=== PATIENT | female | born 1950 | race Caucasian/White ===

== ENCOUNTER 2016-04-08 23:29 | Emergency (ER) | payer OTHER ==
[2016-04-08 23:57] VITALS: BP 136/70; PULSE 92; TEMP 97.8; BMI 25.6
--- NOTE | 2016-04-09 00:15 | PDOC ---
History of Present Illness - General History Source: Patient Exam Limitations: No Limitations - History of Present Illness Initial Comments: 04/09/16 01:16 The patient is a 65-year-old female, with a significant past medical history of hyperlipidemia, hypertension, H.pylori, and anemia, who presents to the emergency department complaining of episodes of nausea, vomiting, diarrhea, and dizziness for the past 2 days. As per daughter, she brings the patient to the ED today due to an episode of dizziness and vertigo while in the bathroom. The patient states she felt as if she were going to syncopize.The patient reports 3 episodes of nonbloody and nonbilious emesis, 1 yesterday and 2 today. She reports 5 episodes of diarrhea. She denies constipation. The patient reports associated abdominal pain, which is alleviated after vomiting. The patient denies any changes in appetite. The patient denies any recent travel. The patient denies any sick contacts. The patient denies fever, chills, cough, or headache. The patient denies chest pain, diaphoresis, palpitations, and shortness of breath. The patient denies dysuria, frequency, urgency, and hematuria. Allergies: None reported. Past Surgical History: Cholecystectomy Social History: Non-smoker. Denies alcohol or drug use. <Jonas Lewis - Last Filed: 04/09/16 01:16> - General History Source: Patient <Brooke Childsan - Last Filed: 04/09/16 02:00> - General Chief Complaint: Vomiting/Diarrhea Stated Complaint: VOMITTING,DIZZINESS,FEVER Time Seen by Provider: 04/09/16 00:15 Past History <Jonas Lewis - Last Filed: 04/09/16 01:16> - Past Medical History Anemia: Yes Hypercholesterolemia: Yes - Surgical History Cholecystectomy: Yes - Psycho/Social/Smoking Cessation Hx Suicidal Ideation: No Smoking History: Never smoked Have you smoked in the past 12 months: No Information on smoking cessation initiated: No Hx Alcohol Use: No Drug/Substance Use Hx: No Substance Use Type: None <MikekatherinAkhil - Last Filed: 04/09/16 02:00> - Past Medical History Allergies/Adverse Reactions: Allergies Allergy/AdvReac Type Severity Reaction Status Date / Time No Known Drug Allergies Allergy Verified 04/08/16 23:56 Home Medications: Ambulatory Orders Atorvastatin Ca [Lipitor] 40 mg PO DAILY 06/24/14 Mometasone/Formoterol [Dulera 100 Mcg/5 Mcg Inhaler] 2 inh IH BID PRN 06/24/14 Sumatriptan Succinate [Imitrex -] 25 mg PO PRN PRN 06/24/14 Meclizine HCl [Antivert -] 25 mg PO TID PRN #21 tablet 01/11/15 Review of Systems - Review of Systems Able to Perform ROS?: Yes Comments:: 04/09/16 00:56 CONSTITUTIONAL: Present:+body aches Absent: fever, chills, diaphoresis, generalized weakness, malaise, loss of appetite HEENT: Absent: rhinorrhea, nasal congestion, throat pain, throat swelling, difficulty swallowing, mouth swelling, ear pain, eye pain, visual Changes CARDIOVASCULAR: Absent: chest pain, syncope, palpitations, irregular heart rate, lightheadedness , peripheral edema RESPIRATORY: Present: +cough Absent: shortness of breath, dyspnea with exertion, orthopnea, wheezing, stridor , hemoptysis GASTROINTESTINAL: Present: +abdominal pain, + nausea, +vomiting Absent: abdominal distension, diarrhea, constipation, melena, hematochezia GENITOURINARY: Absent: dysuria, frequency, urgency, hesitancy, hematuria, flank pain, genital pain MUSCULOSKELETAL: Absent: myalgia, arthralgia, joint swelling SKIN: Absent: rash, itching, pallor HEMATOLOGIC/IMMUNOLOGIC: Absent: easy bleeding, easy bruising, lymphadenopathy, frequent infections ENDOCRINE: Absent: unexplained weight gain, unexplained weight loss, heat intolerance, cold intolerance NEUROLOGIC: Present: +dizziness Absent: headache, focal weakness or paresthesias, unsteady gait, seizure, mental status changes, bladder or bowel incontinence PSYCHIATRIC: Absent: anxiety, depression, suicidal or homicidal ideation, hallucinations. <Jonas Lewis - Last Filed: 04/09/16 01:16> *Physical Exam - Vital Signs Last Vital Signs Temp Pulse Resp BP Pulse Ox 97.8 F 92 H 18 136/70 97 04/08/16 23:56 04/08/16 23:56 04/08/16 23:56 04/08/16 23:56 04/08/16 23:56 - Physical Exam Comments: 04/09/16 00:52 GENERAL: Well developed, well nourished. Awake and alert. No acute distress. HEENT: Normocephalic, atraumatic. PERRLA, EOMI. No conjunctival pallor. Sclera are non- icteric. Moist mucous membranes. Oropharynx is clear. NECK: Supple. Full ROM. No JVD. Carotid pulses 2+ and symmetric, without bruits. No thyromegaly. No lymphadenopathy. CARDIOVASCULAR: Regular rate and rhythm. No murmurs, rubs, or gallops. Distal pulses are 2+ and symmetric. PULMONARY: No evidence of respiratory distress. Lungs clear to auscultation bilaterally. No wheezing, rales or rhonchi. ABDOMINAL: +Hyperactive bowel sounds. Soft. Non-tender. Non-distended. No rebound or guarding. No organomegaly. MUSCULOSKELETAL Normal range of motion at all joints. No bony deformities or tenderness. No CVA tenderness. EXTREMITIES: No cyanosis. No clubbing. No edema. No calf tenderness. SKIN: Warm and dry. Normal capillary refill. No rashes. No jaundice. NEUROLOGICAL: Alert, awake, appropriate. Cranial nerves 2-12 intact. No deficits to light touch and temperature in face, upper extremities and lower extremities. No motor deficits in the in face, upper extremities and lower extremities. Normoreflexic in the upper and lower extremities. Normal speech. Toes are down- going bilaterally. Gait is normal without ataxia. PSYCHIATRIC: Cooperative. Good eye contact. Appropriate mood and affect. <Jonas Lewis - Last Filed: 04/09/16 01:16> - Vital Signs Last Vital Signs Temp Pulse Resp BP Pulse Ox 97.8 F 92 H 18 136/70 97 04/08/16 23:56 04/08/16 23:56 04/08/16 23:56 04/08/16 23:56 04/08/16 23:56 <Akhil Childs - Last Filed: 04/09/16 02:00> ED Treatment Course - LABORATORY CBC & Chemistry Diagram: 04/09/16 00:50 04/09/16 00:50 <Jonas Lewis - Last Filed: 04/09/16 01:16> - LABORATORY CBC & Chemistry Diagram: 04/09/16 00:50 04/09/16 00:50 <Akhil Childs - Last Filed: 04/09/16 02:00> Medical Decision Making - Medical Decision Making 04/09/16 02:00 Dr. Childs: The scribe's documentation has been prepared under my direction and personally reviewed by me in its entirery. I confirm that the note above accurately reflects all work, treatment, procedures, and medical decision making performed by me. <Akhil Childs - Last Filed: 04/09/16 02:00> *DC/Admit/Observation/Transfer - Attestations Scribe Attestion: 04/09/16 00:52 Documentation prepared by Jonas Lewis, acting as certified medical asst for Akhil Childs DO. <Jonas Lewis - Last Filed: 04/09/16 01:16> - Discharge Dispostion Admit: No <Akhil Childs - Last Filed: 04/09/16 02:00> Diagnosis at time of Disposition: Vomiting and diarrhea - Discharge Dispostion Disposition: HOME Condition at time of disposition: Stable - Referrals Referrals: Wes Bhardwaj [Primary Care Provider] - - Patient Instructions Printed Discharge Instructions: DI for Vomiting -- Adult
[2016-04-09] MEDS ORDERED: SODIUM CHLORIDE 1,000 ML IV STA ×2 (00:47→00:48)
[2016-04-09 01:01] LABS: BASOPHIL 0.2 % (0-2.0); EOSINOPHIL 1.6 % (0-4.5); MCH 25.9 pg (25.7-33.7); MCHC 31.9 g/dl (32.0-36.0); MEAN CELL VOLUME 81.2 fl (80-96); MEAN PLT VOLUME 8.6 fl (7.5-11.1); NEUTROPHILS 81.9 % (42.8-82.8); PLATELET COUNT 307 K/MM3 (134-434); RDW 14.8 % (11.6-15.6); WHITE BLOOD COUNT 10.3 K/mm3 (4.0-10.0)
[2016-04-09 01:14] LABS: INR 1.03 (0.82-1.09); PROTHROMBIN TIME (PATIENT) 11.3 SEC (9.98-11.88); URINE APPEARANCE SLCLOUDY; URINE BILIRUBIN NEGATIVE (NEGATIVE); URINE BLOOD NEGATIVE (NEGATIVE); URINE COLOR YELLOW; URINE GLUCOSE (UA) NEGATIVE (NEGATIVE); URINE KETONE NEGATIVE (NEGATIVE); URINE LEUK ESTERASE NEGATIVE (NEGATIVE); URINE NITRITE NEGATIVE (NEGATIVE); URINE PROTEIN 2+ (NEGATIVE); URINE UROBILINOGEN NEGATIVE E.U./dl (0.2-1.0)
[2016-04-09 01:25] LABS: ALBUMIN 3.6 g/dl (3.4-5.0); AMYLASE 82 U/L (25-115); ANION GAP 6 (8-16); BILIRUBIN,TOTAL 0.9 mg/dL (0.2-1.0); CALCIUM 8.8 mg/dL (8.5-10.1); CO2 31 mmol/L (21-32); CREATININE 0.6 mg/dL (0.55-1.02); GLUCOSE,RANDOM 130 mg/dL (74-106); MAGNESIUM 2.5 mg/dL (1.8-2.4); SGOT/AST 25 U/L (15-37); SGPT/ALT 36 U/L (12-78); TOT PROT 7.7 g/dl (6.4-8.2)
[2016-04-09 01:26] LABS: ALK PHOS 104 U/L (45-117)
[2016-04-09 01:46] LABS: ACETONE SERUM NEGATIVE (NEGATIVE)
[2016-04-09 01:49] LABS: URINE HYALINE CAST 2 /lpf; URINE MUCUS MANY; URINE RBC 11 /hpf (0-3); URINE WBC 2 /hpf (3-5)
== END 2016-04-09 02:08 | disposition home or self-care (01) ==
LOC: JER 23:29
PROC: 3E0337Z Introduction of Electrolytic and Water Balance Substance into Peripheral Vein, Percutaneous Approach (ICD-10-PCS; principal; 2016-04-08)
DX: R11.10 Vomiting, unspecified (principal); R19.7 Diarrhea, unspecified; E78.00 Pure hypercholesterolemia, unspecified; D64.9 Anemia, unspecified
CPT/HCPCS: 36415; 80053; 81003; 81015; 82009; 82150; 83690; 83735; 85025; 85610; 87804; 99281-25

== ENCOUNTER 2019-03-14 20:24 | Emergency (ER) | payer OTHER ==
[2019-03-14 21:01] VITALS: TEMP 97.5; BMI 24.8
--- NOTE | 2019-03-14 21:29 | PDOC ---
History of Present Illness - General Chief Complaint: Injury Stated Complaint: FALL Time Seen by Provider: 03/14/19 20:32 - History of Present Illness Initial Comments: 03/15/19 06:56 HPI: 68F PMH HTN, HLD, pre-DM BIBEMS after fall w/o head strike or LOC. Pt was straining in the bathroom, got up, felt weak, nauseated, and warm. Subsequently fell. Pt was able to pick herself up and walk to the living room where she subsequently fell again. Pt states she landed on her left side. Denies LOC or head strike. Denies chest pain, palpitations, shortness of breath, f/c. Denies numbness, tingling, weakness, changes in vision, hearing, headache, dizziness, or imbalance. Denies dysuria, hematuria. Currently endorsing LLQ pain - severe nonradiating and colicky earlier before she passed stool, now constant, dull, and less severe. Has chronic hx of LLQ pain and straining. PMH as above PCP Dr. Lashae LAWSON Denies smoking, etoh, drugs Past History - Past Medical History Allergies/Adverse Reactions: Allergies Allergy/AdvReac Type Severity Reaction Status Date / Time No Known Drug Allergies Allergy Verified 04/08/16 23:56 Home Medications: Ambulatory Orders Atorvastatin Ca [Lipitor] 40 mg PO DAILY 06/24/14 Mometasone/Formoterol [Dulera 100 Mcg/5 Mcg Inhaler] 2 inh IH BID PRN 06/24/14 Sumatriptan Succinate [Imitrex -] 25 mg PO PRN PRN 06/24/14 Meclizine HCl [Antivert -] 25 mg PO TID PRN #21 tablet 01/11/15 Docusate Sodium [Colace] 100 mg PO BID #10 capsule 03/15/19 Metronidazole 500 mg PO TID #30 tablet 03/15/19 levoFLOXacin [Levaquin] 750 mg PO DAILY #9 tab 03/15/19 Anemia: Yes COPD: No Hypercholesterolemia: Yes - Surgical History Cholecystectomy: Yes - Psycho Social/Smoking Cessation Hx Smoking History: Never smoked Have you smoked in the past 12 months: No Hx Alcohol Use: No Drug/Substance Use Hx: No Substance Use Type: None Review of Systems - Review of Systems Comments:: 03/15/19 06:56 ROS: CONSTITUTIONAL: Denies F / C. Endorses improving weakness (started w/ fall) HEENT: Denies headache, lightheadedness, dizziness, changes in vision / hearing , diplopia, blurry vision, sore throat RESP: Denies SOB, cough, orthopnea, JEFFRIES CARD: Denies chest pain, palpitations GI: Endorses LLQ pain, straining, mild nausea. Denies V / D, bloody stool, inability to tolerate PO : Denies dysuria, hematuria, frequency NEURO: Denies numbness, tingling, weakness MSK: Denies back pain, limb pain, pelvic pain *Physical Exam - Vital Signs Last Vital Signs Temp Pulse Resp BP Pulse Ox 97.5 F L 68 16 117/59 L 95 03/14/19 20:40 03/14/19 20:40 03/14/19 20:40 03/14/19 20:40 03/14/19 20:40 - Physical Exam 03/15/19 06:56 PE: GEN: Well appearing, NAD, comfortable. AAOx3 HEENT: NC/AT, no obvious deformities, CN II-XII grossly intact. EOMI, PERRLA. No facial asymmetry. Moist mucous membranes. Normal voice. Supple neck w/ FROM, neg TTP midline CV: S1/S2, RRR, no m/r/g LUNG: CTAB, no wheezes, crackles, rales, rhonchi. GI: soft, ndnt, +BS, no guarding, no rebound. No masses. Neg CVAT b/l. EXTREMITIES: No LE edema. No obvious deformities of all extremities. SKIN: warm, dry, normal turgor PSYCH: normal mood and affect NEURO: Moving all extremities well. FROM UE and LE b/l. 5/5 bicep/tricep/carpenter railcar strength b/l. 5/5 UE strength b/l. 5/5 LE strength b/l. Sensation symmetric and intact throughout. No ataxia on FTN or heel-billingsley. No pronator drift. No romberg. Ambulates w/ normal gait. BACK: No obvious deformities, no step offs, no midline TTP. No signs of trauma. No pelvic instability. ED Treatment Course - LABORATORY CBC & Chemistry Diagram: 03/15/19 01:00 03/14/19 21:50 - RADIOLOGY Radiology Studies Ordered: Category Date Time Status ABDOMEN & PELVIS CT WITH CONTR [CT] Stat CT Scan 03/14/19 21:[address] WITHOUT CONTRAST [CT] Stat CT Scan 03/14/19 21:23 Ordered CHEST X-RAY PORTABLE* [RAD] Stat Radiology 03/14/19 21:23 Ordered Medical Decision Making - Medical Decision Making 03/14/19 21:25 MDM: 68F BIBEMS after fall w/o LOC or head strike after straining in bathroom. Currently endorsing mild nausea and mild constant LLQ pain. Neurologically intact, no midline TTP of neck or back. No obvious deformities. No pelvic instability. DDx - likely vasovagal; eval for arrythmia, dehydration, lytes abnormalities, anemia - cbc, cmp, cardiac - UA - EKG - CXR, CT head, CT A/P - Rectal exam 03/14/19 22:14 Notified by patient that she made a soft BM with some blood coating stool. 03/14/19 23:30 RECTAL: No hemorrhoids, masses, lesions on inspection. No active bleeding or oozing from anus. Normal sphincter tone. No masses or nodules of the rectal vault palpated. No fecal impaction. There is blood on glove. 03/15/19 01:08 labs reviewed stool occult positive CT Head neg for acute pathology CT A/P shows possible colitis tylenol for pain repeat trops and cbc likely dc home w/ colace and pcp f/u 03/15/19 01:37 PO tolerant treat for colitis w/ PO abx DC'd home w/ colace, po abx, pcp f/u Discharge - Discharge Information Problems reviewed: Yes Clinical Impression/Diagnosis: Fall Qualifiers: Encounter type: initial encounter Qualified Code(s): W19.XXXA - Unspecified fall, initial encounter Abdominal pain Qualifiers: Abdominal location: left lower quadrant Qualified Code(s): R10.32 - Left lower quadrant pain Condition: Stable Disposition: HOME - Admission No - Additional Discharge Information Prescriptions: Docusate Sodium [Colace] 100 mg PO BID #10 capsule levoFLOXacin [Levaquin] 750 mg PO DAILY #9 tab Metronidazole 500 mg PO TID #30 tablet - Follow up/Referral Referrals: Wes Bhardwaj [Primary Care Provider] - - Patient Discharge Instructions Patient Printed Discharge Instructions: How to Prevent Falls Additional Instructions: You were seen and treated in the Emergency Department Your CT scan of the head was negative for acute pathology. Your CT scan of the abdomen and pelvic showed possible colitis, which we are treating with antibiotics. We sent medications to your pharmacy, please pick it up and take as prescribed. Pay attention to the dosing. Follow up with your primary care doctor in the next 1-2 days. IMMEDIATELY RETURN TO THE NEAREST EMERGENCY DEPARTMENT IF YOU EXPERIENCE ANY OF THE FOLLOWING: - WORSENING PAIN - FALL, LOSS OF CONSCIOUSNESS, SEIZURE - CHEST PAIN, SHORTNESS OF BREATH - FEVER - ANYTHING THAT CONCERNS YOU - Post Discharge Activity
--- NOTE | 2019-03-14 21:56 | PDOC ---
Documentation entered by Nory Dai SCRIBE, acting as scribe for Renuka Knutson DO. Renuka Knutson DO: This documentation has been prepared by the Malaika irvin Nirvannie, SCRIBE, under my direction and personally reviewed by me in its entirety. I confirm that the documentation accurately reflects all work, treatment, procedures, and medical decision making performed by me. Attending Attestation - Resident Resident Name: Bam Gardner - ED Attending Attestation I have performed the following: I have examined & evaluated the patient, The case was reviewed & discussed with the resident, I agree w/resident's findings & plan, Exceptions are as noted - HPI HPI: 03/14/19 21:58 The patient is a 68 year old female, with a significant past medical history of hyperlipidemia, hypertension, H.pylori, chronic constipation, and anemia, who presents to the emergency department s/p 2 mechanical falls with left-sided abdominal pain. As per patients daughter at bedside translating, she was straining on the toilet bowl at which time she attempted to get up too quickly subsequently falling onto her left side. Daughter notes she attempted to walk to the living room at which time she fell once again onto her left side, prompting her arrival to the ED. Daughter notes the patient called her and her brother. Patient was able to defecate minimally prior to her arrival when EMS arrived. She denies any LOC, paresthesias, change in strength/sensation or head/neck trauma. She denies recent fevers, chills, headache or dizziness. She denies recent nausea, vomiting, diarrhea or constipation. She denies recent dysuria, frequency, urgency or hematuria. She denies recent chest pain or shortness of breath. Allergies: NKDA Past surgical history: Cholecystectomy. - Physicial Exam PE: 03/14/19 21:58 Constitutional: Awake, alert, oriented. No acute distress. Head: Normocephalic. Atraumatic Eyes: PERRL. EOMI. Conjunctivae are not pale. ENT: Mucous membranes are moist and intact. Posterior pharynx without exudates or erythema. Uvula midline. Neck: Supple. Full ROM. No lymphadenopathy. Cardiovascular: Regular rate. Regular rhythm. S1, S2 regular. Distal pulses are 2+ and symmetric. Pulmonary/Chest: No evidence of respiratory distress. Clear to auscultation bilaterally No wheezing, rales or rhonchi. Abdominal: Soft and non-distended. +LLQ tenderness. No rebound, guarding or rigidity. No organomegaly. No palpable masses. Good bowel sounds. Back: No CVA tenderness. Musculoskeletal: No edema. No cyanosis. No clubbing. Full range of motion in all extremities. No calf tenderness. Radial/pedal pulses are intact and 2+ bilaterally Skin: Skin is warm and dry. No petechiae. No purpura. Neurological: Alert and oriented to person, place, and time. Cranial nerves II -XII are grossly intact. Normal speech. Strength is grossly symmetric. No sensory deficits. Psychiatric: Good eye contact. Normal interaction, affect and behavior. - Medical Decision Making 03/14/19 21:50 a/p: 68yo female with LLQ pain -2 falls today - near syncope, no head injury or LOC -falls after straining to have a BM -LLQ pain -no f/c. no cp, sob, no head injury, no anticoags, no neuro deficits -had a small bm at home [employer] -will send labs, ekg, cxr, head ct (given freq falls), ct abd/.pelvis for eval of LLQ pain 03/14/19 23:01 mildly elevated wbc chem reviewed ua pending ct pending pt has been ambulatory in the ER with a steady gait 03/14/19 23:41 ua neg chem reviewed rectal per the [facility]ba intern 03/14/19 23:51 cxr clear 03/15/19 01:[address] head and abd neg for acute pathology pending repeat cbc and trop 03/15/19 01:34 pt straining- suspect cause of hte bleeding 03/15/19 01:[address] will start oral abx 03/15/19 01:42 cbc reviewed pending repeat trop hgb stable wbc improved 03/15/19 01:56 pt pending trop when neg she is stable for dc to home with oral abx Heart Score/ECG Review - ECG Intrepretation Comment:: 03/15/19 00:08 sinus at 79, nl axis, nl interval, no acute st/t wave findings
[2019-03-14 22:05] LABS: BASO % 0.7 % (0-2.0); EOS % 0.9 % (0-4.5); HEMATOCRIT 41.4 % (32.4-45.2); LYMPH % 15.7 % (8-40); MCH 27.2 pg (25.7-33.7); MCHC 33.8 g/dl (32.0-36.0); MEAN CELL VOLUME 80.5 fl (80-96); MEAN PLT VOLUME 8.7 fl (7.5-11.1); NEUT % 79.7 % (42.8-82.8); PLATELET COUNT 279 K/MM3 (134-434); RBC 5.13 M/mm3 (3.60-5.2); RDW 14.5 % (11.6-15.6); WHITE BLOOD COUNT 10.8 K/mm3 (4.0-10.0)
[2019-03-14 22:35] LABS: ALBUMIN 3.4 g/dl (3.4-5.0); BILIRUBIN,TOTAL 0.5 mg/dL (0.2-1); BLOOD UREA NITROGEN 13.6 mg/dL (7-18); CALCIUM 9.1 mg/dL (8.5-10.1); CREATININE 0.7 mg/dL (0.55-1.3); POTASSIUM 4.1 mmol/L (3.5-5.1); TOT PROT 7.3 g/dl (6.4-8.2)
[2019-03-14 22:38] LABS: LIPASE 164 U/L (73-393)
[2019-03-14 23:27] LABS: EPI CELLS 1.1 /HPF (0-5/HPF); HYALINE CASTS 0 /lpf (0-8); URINE APPEARANCE CLEAR; URINE BACTERIA 14.4 /hpf (NEGATIVE); URINE BILIRUBIN NEGATIVE (NEGATIVE); URINE COLOR YELLOW; URINE GLUCOSE (UA) NEGATIVE (NEGATIVE); URINE KETONE NEGATIVE (NEGATIVE); URINE LEUK ESTERASE NEGATIVE (NEGATIVE); URINE NITRITE NEGATIVE (NEGATIVE); URINE PROTEIN NEGATIVE (NEGATIVE); URINE RBC 2 /hpf (0-4); URINE UROBILINOGEN 0.2 mg/dL (0.2-1.0); URINE WBC 1 /hpf (0-5)
[2019-03-15] MEDS ORDERED: ACETAMINOPHEN 1000 MG/100 ML VIAL (NON FORMULARY) IVPB ONE (01:07)
[2019-03-15 01:35] LABS: BASO % 0.5 % (0-2.0); EOS % 0.3 % (0-4.5); HEMATOCRIT 40.1 % (32.4-45.2); HEMOGLOBIN 13.4 GM/dL (10.7-15.3); MCHC 33.3 g/dl (32.0-36.0); MEAN CELL VOLUME 80.9 fl (80-96); MEAN PLT VOLUME 8.5 fl (7.5-11.1); MONO % 5.6 % (3.8-10.2); NEUT % 78.6 % (42.8-82.8); PLATELET COUNT 276 K/MM3 (134-434); RBC 4.95 M/mm3 (3.60-5.2); RDW 14.5 % (11.6-15.6); WHITE BLOOD COUNT 9.9 K/mm3 (4.0-10.0)
[2019-03-15] MEDS ORDERED: ACETAMINOPHEN INJECTION 100 ML IVPB ONE (01:35)
[2019-03-15] MEDS ORDERED: metroNIDAZOLE 250 MG TABLET PO ONE (01:39)
[2019-03-15] MEDS ORDERED: metroNIDAZOLE 250 MG TABLET ONE (01:40)
[2019-03-15 02:21] VITALS: BP 124/61; PULSE 66
--- NOTE | 2019-03-15 11:54 | EKG ---
Test Reason : Blood Pressure : / mmHG Vent. Rate : 079 BPM Atrial Rate : 079 BPM P-R Int : 150 ms QRS Dur : 066 ms QT Int : 376 ms P-R-T Axes : 039 033 032 degrees QTc Int : 431 ms POOR DATA QUALITY, INTERPRETATION MAY BE ADVERSELY AFFECTED NORMAL SINUS RHYTHM LOW VOLTAGE QRS BORDERLINE ECG WHEN COMPARED WITH ECG OF 11-JAN-2015 14:05, NO SIGNIFICANT CHANGE WAS FOUND Confirmed by TALHA WILLIS, CASEY ([id number]) on 03/15/2019 11:54:14 AM Referred By: Confirmed By:CASEY PALENCIA MD
== END 2019-03-15 02:15 | disposition home or self-care (01) ==
LOC: JER 20:24
PROC: 3E033NZ Introduction of Analgesics, Hypnotics, Sedatives into Peripheral Vein, Percutaneous Approach (ICD-10-PCS; principal; 2019-03-14)
DX: R10.32 Left lower quadrant pain (principal); W18.39XA Other fall on same level, initial encounter; Y93.89 Activity, other specified; Y92.031 Bathroom in apartment as the place of occurrence of the external cause; Y99.8 Other external cause status; R19.5 Other fecal abnormalities; I10 Essential (primary) hypertension; E78.5 Hyperlipidemia, unspecified; K59.09 Other constipation; D64.9 Anemia, unspecified
CPT/HCPCS: 36415; 70450-TC; 71045-TC-FY; 74177-TC; 80053; 81003; 82272; 82550; 83690; 84484; 85025; 93005; 93010; 99283-25; J0131; Q9967

== ENCOUNTER 2020-06-07 16:03 | Emergency (ER) | payer OTHER ==
[2020-06-07 16:24] VITALS: BMI 26.5
[2020-06-07] MEDS ORDERED: BAMLANIVIMAB 700 MG in SODIUM CHLORIDE 250 ML IVPB ONE (17:36)
[2020-06-07 19:02] VITALS: BP 127/68; PULSE 76; TEMP 98.2
== END 2020-06-07 21:30 | disposition home or self-care (01) ==
LOC: JCOVINFU 16:03
DX: U07.1 COVID-19 (principal)
CPT/HCPCS: 99284-25; C9803; M0239; Q0239; U0003